=== PATIENT | male | born 1990 | race Caucasian/White ===

== ENCOUNTER 2021-04-03 20:49 | Emergency (ER) | payer BC ==
[2021-04-03] MEDS ORDERED: Fluorescein 1 MG Ophth Strip EYELF ONE (21:18)
[2021-04-03] MEDS ORDERED: Proparacaine 0.5% Ophth Soln 15 ML Bottle EYELF ONE ×2 (21:26→21:30)
[2021-04-03] MEDS ORDERED: Ketorolac 0.5% Ophth Soln 5 ML Bottle EYELF ONE (21:40)
[2021-04-03] MEDS ORDERED: Erythromycin Base 0.5% Ophth Oint 1 GM Tube EYELF ONE (21:40)
--- NOTE | 2021-04-03 21:45 | EDM.PDOC ---
ED HPI GENERAL MEDICAL PROBLEM - General Chief Complaint: Eye Problems Stated Complaint: INJURED LEFT EYE Time Seen by Provider: 04/03/21 21:25 Source of Information: Reports: Patient, RN Notes Reviewed History Limitations: Reports: No Limitations - History of Present Illness INITIAL COMMENTS - FREE TEXT/NARRATIVE: Patient is a 30-year-old male who presents to the ER for evaluation of left eye pain. Patient was in [place] earlier today, with his daughter and she ended up scratching his eye. States it was painful all the way back on the car ride from [place]. Patient states it seems to be in the lower portion of his left eye. He also notes some tearing to the eye. He does not wear glasses or contacts, he denies any blurred vision or double vision. Patient did not take anything for the pain. Patient denies any other sick-like symptoms, fever/chills, cough/shortness of breath, nausea/vomiting/diarrhea. Social & Family History - Tobacco Use Tobacco Use Status *Q: Current Every Day Tobacco User Years of Tobacco use: 14 Packs/Tins Daily: 0.3 ED ROS GENERAL - Review of Systems Review Of Systems: Comprehensive ROS is negative, except as noted in HPI. ED EXAM GENERAL W FULL EYE - Physical Exam Exam: See Below Exam Limited By: No Limitations General Appearance: Alert, WD/WN, No Apparent Distress Eye Exam: Right Eye: Normal Inspection, Left Eye: Conjunctival Injection, Corneal Abrasion (to the 6 o'clock position of the left cornea), Bilateral Eye: EOMI, PERRL Eyelids: Bilateral: Normal Appearance Conjunctiva & Sclera: Right: Normal Appearance, Left: Injected Cornea Exam: Right: Normal Appearance, Left: Corneal Abrasion (to 6 o'clock position of left eye), Examined with Flourescein Extraocular Movements: Bilateral: Intact Pupils: Normal Accommodation Pupillary Size: Bilateral: 3 mm Pupillary Reaction: Bilateral: Brisk Respiratory/Chest: No Respiratory Distress, Lungs Clear, Normal Breath Sounds, No Accessory Muscle Use, Chest Non-Tender Cardiovascular: Normal Peripheral Pulses, Regular Rate, Rhythm, No Edema Extremities: Normal Inspection, Normal Capillary Refill Neurological: Alert, Oriented, Normal Cognition, No Motor/Sensory Deficits Psychiatric: Normal Affect, Normal Mood Skin Exam: Warm, Dry, Intact, Normal Color, No Rash Course - Vital Signs Last Recorded V/S: Last Vital Signs Temp 97.8 F 04/03/21 21:28 Pulse 82 04/03/21 21:28 Resp 20 04/03/21 21:28 BP 132/94 H 04/03/21 21:28 Pulse Ox 100 04/03/21 21:28 - Orders/Labs/Meds Orders: Active Orders 24 hr Category Date Time Status Erythromycin Base [Erythromycin 0.5% Ophth Oint] Med 04/03/21 21:40 Once 1 gm EYELF ONETIME ONE Ketorolac [Acular 0.5% Ophth Soln] Med 04/03/21 21:40 Once 1 ml EYELF ONETIME ONE Meds: Medications Discontinued Medications Generic Name Dose Route Start Last Admin Trade Name Freq PRN Reason Stop Dose Admin Fluorescein Sodium 1 mg 04/03/21 21:18 Fluorescein 1 Mg Ophth Strip EYELF 04/03/21 21:19 ONETIME ONE Proparacaine HCl 2 ml 04/03/21 21:30 04/03/21 21:26 Proparacaine 0.5% Ophth Soln 15 Ml Bottle EYELF 04/03/21 21:31 2 drop ONETIME ONE Administration Proparacaine HCl 2 ml 04/03/21 21:26 Proparacaine 0.5% Ophth Soln 15 Ml Bottle EYELF 04/03/21 21:27 ONETIME ONE - Re-Assessments/Exams Free Text/Narrative Re-Assessment/Exam: 04/03/21 21:43 Patient presents to the ER for the evaluation of his left eye injury. There does appear to be a corneal abrasion to the 6 o'clock position of his left thigh. We will go ahead and treat this with erythromycin ointment and ketorolac eyedrops. Departure - Departure Time of Disposition: 21:44 Disposition: Home, Self-Care 01 Condition: Good Clinical Impression: Corneal abrasion Qualifiers: Encounter type: initial encounter Laterality: left Qualified Code(s): S05.02XA - Injury of conjunctiva and corneal abrasion without foreign body, left eye, initial encounter - Discharge Information *PRESCRIPTION DRUG MONITORING PROGRAM REVIEWED*: No *COPY OF PRESCRIPTION DRUG MONITORING REPORT IN PATIENT DON: No Instructions: Corneal Abrasion, [id number] Referrals: Alberto Olivares MD [Primary Care Provider] - Additional Instructions: You have been evaluated in the ED today for a foreign body sensation in your eye. You were identified to have a corneal abrasion to the left eye. You were given some pain drops for your eye, ketorolac, please instill 2 drops to the affected eye every 6 hours at least for the next 24 hours. You may use this up to 2-3 days if needed. Please use the erythromycin ointment, 1 cm ribbon to the lower affected eyelid margin 4 times daily for the next 3-5 days. Recommend that you follow up with optometry [facility] for a more thorough evaluation and to make sure that everything is healing appropriately. You will have to call around and schedule yourself an appointment with the next available prov ider if you do not already have a current eye doctor. Please return to the ED if your symptoms should change or worsen. Sepsis Event Note (ED) - Focused Exam Vital Signs: Vital Signs Temp Pulse Resp BP Pulse Ox 04/03/21 21:28 97.8 F 82 20 132/94 H 100 - My Orders Last 24 Hours: My Active Orders 04/03/21 21:40 Erythromycin Base [Erythromycin 0.5% Ophth Oint] 1 gm EYELF ONETIME ONE Ketorolac [Acular 0.5% Ophth Soln] 1 ml EYELF ONETIME ONE - Assessment/Plan Last 24 Hours: My Active Orders 04/03/21 21:40 Erythromycin Base [Erythromycin 0.5% Ophth Oint] 1 gm EYELF ONETIME ONE Ketorolac [Acular 0.5% Ophth Soln] 1 ml EYELF ONETIME ONE
== END 2021-04-03 22:22 | disposition home or self-care (01) ==
LOC: JD.ED 20:49
DX: S05.02XA Injury of conjunctiva and corneal abrasion without foreign body, left eye, initial encounter (principal); Z72.0 Tobacco use; X58.XXXA Exposure to other specified factors, initial encounter
CPT/HCPCS: 99283; A9270